=== PATIENT | male | born 1960 | race Hispanic/Latino ===

== ENCOUNTER 2023-09-24 04:59 | Observation (INO) | payer MEDICARE ==
[2023-09-19 11:06] LABS: BASOPHILS # (AUTO) 0.01 K/uL (0.00-0.20); BASOPHILS % (AUTO) 0.1 % (0.0-5.0); EOSINOPHILS # (AUTO) 0.03 K/uL (0.00-0.70); EOSINOPHILS % (AUTO) 0.4 % (0.0-8.0); HEMATOCRIT 47.8 % (42-54); IMMATURE GRANULOCYTE ABSOLUTE 0.06 K/uL (0-1); LYMPHOCYTES # (AUTO) 1.8 K/uL (1.0-4.8); LYMPHOCYTES % (AUTO) 24.5 % (21.0-51.0); MEAN CORPUSCULAR HEMOGLOBIN 30.3 pg (27.0-33.0); MEAN CORPUSCULAR HGB CONC 33.1 g/dL (32.0-36.0); MEAN CORPUSCULAR VOLUME 91.6 fL (79-99); MONOCYTES # (AUTO) 0.4 K/uL (0.1-1.0); MONOCYTES % (AUTO) 5.3 % (3.0-13.0); NEUTROPHILS % (AUTO) 68.9 % (40.0-77.0); PLATELET COUNT (AUTO) 283 K/uL (130-400); RED BLOOD CELL COUNT(AUTO) 5.22 MIL/uL (4.50-6.20); RED CELL DISTRIBUTION WIDTH 13.2 % (11.0-15.5); WHITE BLOOD COUNT (AUTO) 7.2 K/uL (4.8-10.8)
[2023-09-19 11:15] LABS: CREATININE 1.4 mg/dL (0.5-1.5); POTASSIUM 4.7 mmol/L (3.5-5.1)
[2023-09-19 11:16] VITALS: BP 141/71; PULSE 73; RESP 19
[2023-09-19 11:20] LABS: INR 0.98 (0.85-1.15); PROTHROMBIN TIME 11.4 SEC (9.6-11.6)
[2023-09-19 11:21] LABS: PARTIAL THROMBOPLASTIN TIME 26.8 SEC (26.3-35.5)
[2023-09-24] VITALS (30 sets, daily range): BP systolic 116–145; BP diastolic 66–86; PULSE 62–88; RESP 14–20
[~2023-09-24] VITALS: Ht 175.3 cm; Wt 109.0 kg
[~2023-09-24 04:59] MED LIST: CILO50TA2 PO; CLOP75TA32 PO; DAPA10TA PO; FENO160T16 PO; SEMA2PEN SQ; TRAM50TA4 PO
[2023-09-24] MEDS: CEFAZOLIN SODIUM 1 GM VIAL ONE ×3 (05:30→23:36)
[2023-09-24] MEDS ORDERED: CEFAZOLIN SODIUM 1 GM VIAL ONE ×2 (08:42→11:01)
[2023-09-24] MEDS ORDERED: TRANEXAMIC ACID 1000MG/10ML ONE (08:42)
[2023-09-24] MEDS ORDERED: GENTAMICIN SULFATE 80 MG/2 ML VIAL ONE ×2 (08:42→11:01)
[2023-09-24] MEDS: 0.9%NACL 1000ML 1,000 ML IV ONE (08:46)
[2023-09-24] MEDS ORDERED: DEXAMETHASONE SOD PHOSPHATE 10MG/ML 1ML VIAL ONE (08:50)
[2023-09-24] MEDS ORDERED: ONDANSETRON 4MG INJ ONE (08:50)
[2023-09-24] MEDS ORDERED: MIDAZOLAM HCL 1 MG/ML 2ML VIAL ONE (08:50)
[2023-09-24] MEDS ORDERED: PROPOFOL 10 MG/ML 20ML VIAL IV ONE (09:36)
[2023-09-24] MEDS ORDERED: LIDOCAINE PF 100MG/5ML (2%) SYRINGE 5ML ONE (09:36)
[2023-09-24] MEDS ORDERED: ROCURONIUM BROMIDE 10MG/1ML 5ML VL ONE (09:36)
[2023-09-24] MEDS ORDERED: FENTANYL CITRATE PF 50 MCG/1 ML 5ML AMP IV ONE (09:37)
[2023-09-24] MEDS: CEFAZOLIN SODIUM 3 GM VIAL IVPB ONE (10:00)
[2023-09-24] MEDS: TRANEXAMIC ACID 1000MG/10ML IV ONE ×3 (10:14→11:10)
[2023-09-24] MEDS: CEFAZOLIN SODIUM 2 GM VIAL IJ ONE ×2 (10:45→11:04)
[2023-09-24] MEDS: GENTAMICIN SULFATE 80 MG/2 ML VIAL TP ONE ×2 (10:45→11:04)
[2023-09-24] MEDS: 0.9%NACL 48.45 ML, ROPIVACAINE 0.5% 49.25ML, EPINEPH 0.5MG KETOROLAC 30MG,CLONIDINE 80MCG IV PRN (10:46)
[2023-09-24] MEDS ORDERED: GLYCOPYRROLATE 0.2 MG/ML 5 ML VIAL ONE (11:02)
[2023-09-24] MEDS ORDERED: NEOSTIGMINE METHYLSULFATE 1MG/ML IV ONE (11:02)
[2023-09-24] MEDS: DEXTROSE 50%-WATER 50 ML DISP.SYRIN IV ONE (11:02)
[2023-09-24] MEDS ORDERED: KETOROLAC 30MG VIAL (30MG/ML) ONE (11:24)
[2023-09-24] MEDS: ONDANSETRON 4MG INJ ONE (12:05)
[2023-09-24] MEDS: MEPERIDINE-PF 25 MG/ML SYG ONE ×2 (12:05→12:27)
[2023-09-24] MEDS: FENTANYL CITRATE PF 50 MCG/1 ML 2ML VIAL ONE (17:28)
[2023-09-24] MEDS ORDERED: FENTANYL CITRATE PF 50 MCG/1 ML 2ML VIAL IVP PRN (17:30)
[2023-09-24] MEDS: CEFAZOLIN SODIUM 3 GM in DEXTROSE 5%-WATER 100 ML IVPB SCH ×2 (18:15→23:35)
[2023-09-24] MEDS ORDERED: CEFAZOLIN SODIUM 2 GM VIAL IVPB SCH ×2 (18:15→20:30)
[2023-09-24] MEDS ORDERED: 0.9%NACL 50ML 50 ML IV ONE (18:19)
[2023-09-24] MEDS: CEFAZOLIN SODIUM 2 GM VIAL ONE ×2 (18:29→23:35)
[2023-09-24] MEDS ORDERED: COMPOUND IV REFRIGERATED 1 EACH IVSOLN MISC PRN (19:00)
[2023-09-24] MEDS ORDERED: BENZOCAINE/MENTH/CETYLPYRD CL 1 EACH LOZENGE MM PRN (20:30)
[2023-09-24] MEDS ORDERED: ACETAMINOPHEN 325 MG TAB PO PRN ×2 (20:30)
[2023-09-24] MEDS ORDERED: LACTULOSE 20 GM/30 ML UDCUP PO PRN (20:30)
[2023-09-24] MEDS ORDERED: MAG/ALUM/SIMETH 30 ML UDCUP PO PRN (20:30)
[2023-09-24] MEDS ORDERED: DIPHENHYDRAMINE HCL 25 MG CAPSULE PO PRN (20:30)
[2023-09-24] MEDS ORDERED: ACETAMINOPHEN 325 MG TAB PO SCH (20:30)
[2023-09-24] MEDS ORDERED: DiphenhydrAMINE HCL 50 MG/ML VIAL IM PRN (20:30)
[2023-09-24] MEDS ORDERED: ONDANSETRON 4MG INJ IVP PRN (20:30)
[2023-09-24] MEDS ORDERED: DIPHENOXYLATE HCL/ATROPINE 2.5/0.025 MG TAB PO PRN (20:30)
[2023-09-24] MEDS: HYDROMORPH /0.9% NACL/PF PCA 50 ML IV PRN (21:00)
[2023-09-24] MEDS: TRAMADOL HCL 50 MG TABLET PO SCH (21:00)
[2023-09-24] MEDS: WARFARIN SODIUM 7.5 MG TAB PO SCH (22:14)
[2023-09-25 04:11] VITALS: BP 118/60; PULSE 77; RESP 17
[2023-09-25 05:32] LABS: HEMATOCRIT 36.8 % (42-54); MEAN CORPUSCULAR HEMOGLOBIN 30.1 pg (27.0-33.0); MEAN CORPUSCULAR HGB CONC 32.9 g/dL (32.0-36.0); MEAN CORPUSCULAR VOLUME 91.5 fL (79-99); RED BLOOD CELL COUNT(AUTO) 4.02 MIL/uL (4.50-6.20); RED CELL DISTRIBUTION WIDTH 13.3 % (11.0-15.5); WHITE BLOOD COUNT (AUTO) 13.4 K/uL (4.8-10.8)
[2023-09-25 05:38] LABS: INR 1.07 (0.85-1.15); PROTHROMBIN TIME 12.4 SEC (9.6-11.6)
[2023-09-25 05:45] LABS: CREATININE 1.2 mg/dL (0.5-1.5); POTASSIUM 4.3 mmol/L (3.5-5.1)
[2023-09-25 08:00] VITALS: BP 134/94; PULSE 94; RESP 18; O2SAT 99
[2023-09-25] MEDS: CILOSTAZOL 100 MG TAB PO SCH (08:35)
[2023-09-25] MEDS: CLOPIDOGREL 75MG TAB PO SCH (08:36)
[2023-09-25] MEDS: HOME MEDICATION 1 EACH PO SCH ×2 (09:00)
[2023-09-25 12:00] VITALS: BP 128/57; PULSE 64; RESP 17
[2023-10-01] MEDS ORDERED: HOME MEDICATION 1 EACH SQ SCH (09:00)
== END 2023-09-25 15:10 | disposition home or self-care (01) ==
LOC: DAH 04:59 → DAHIP 05:00 → DAH 05:00 → 4AH 19:43
PROVIDERS: ADMIT Orthopaedic Surgery; ATTEND Orthopaedic Surgery
DX: M17.12 Unilateral primary osteoarthritis, left knee (principal); E78.1 Pure hyperglyceridemia; E87.1 Hypo-osmolality and hyponatremia; E66.9 Obesity, unspecified; I73.9 Peripheral vascular disease, unspecified; E11.51 Type 2 diabetes mellitus with diabetic peripheral angiopathy without gangrene; E11.319 Type 2 diabetes mellitus with unspecified diabetic retinopathy without macular edema; E03.9 Hypothyroidism, unspecified; I10 Essential (primary) hypertension; Z68.35 Body mass index [BMI] 35.0-35.9, adult; Z79.02 Long term (current) use of antithrombotics/antiplatelets; Z86.2 Personal history of diseases of the blood and blood-forming organs and certain disorders involving the immune mechanism
CPT/HCPCS: 80048 ×2; 85025; 85610 ×2; 85730; 36415 ×2; 87641; 27447; 96365; 96366 ×2; 96368; 82948 ×4; 97161; 97012; 97116 ×2; 97530 ×3; 85027; G0378 ×26; G0379; J0690 ×11; A4510; A4663; J7120; A4215 ×2; A4649 ×4; J3010 ×2; J3490 ×5; J1100; J7030 ×2; J7070; J2001; J1580 ×3; J2250; J7060 ×2; J2704; J2405 ×2; J2710; J2175 ×2; A6223; A4930; C1763 ×2; C1776; A4223; A4222; A4221; A6450; A4606; J1885